=== PATIENT | female | born 1970 | race Caucasian/White ===

== ENCOUNTER → 2019-07-08 09:53 | Outpatient (CLI) | payer OTHER, SELFPAY ==
[2019-07-08 12:25] LABS: Absolute Lymphocyte Count 2.17 X10^3/uL (0.83-4.51); Basophil# 0.03 X10^3/uL; Basophil% 0.4 % (0-1); Eosinophil# 0.18 X10^3/uL; Eosinophils% 2.7 % (0-5); Hemoglobin 12.3 g/dL (12.0-15.0); Lymphocyte # 2.17 X10^3/ul (4.0); Lymphocyte % 32.1 % (19-41); Mean Corp Hgb Conc 31.5 g/dL (32-36); Mean Corpuscular Hgb 25.4 pg (27.0-32.0); Mean Corpuscular Volume 80.6 fL (81-99); Mean Platelet Vol. 9.1 fl (6.2-12.0); Monocyte# 0.37 X10^3/uL; Monocyte% 5.5 % (0-10); NRBC Flagged by Analyzer 0 % (0-5); Neutrophil # 3.99 X10^3/uL (2.7-7.7); Neutrophil % 59.2 % (47-70); Platelet Count 433 K/mm3 (150-450); RBC Distribution Width CV 14.4 % (11.6-14.6); RBC Distribution Width SD 42.1 fl (35.1-43.9); Red Blood Count 4.84 M/mm3 (4.2-5.4); White Blood Count 6.8 K/mm3 (4.4-11.0)
[2019-07-08 12:30] LABS: ALB/GLOB Ratio 0.8 RATIO (0.9-2.4); AST(SGOT) 15 U/L (15-37); Alanine Aminotransfer ALT/SGPT 26 U/L (13-56); Albumin, Serum 3.4 g/dL (3.2-5.0); Alkaline Phosphatase 64 U/L (45-117); Anion Gap 5 (5-15); BUN 8 mg/dL (7-18); BUN/Creat Ratio 10.8 RATIO (10-20); Calcium,Total 9.1 mg/dL (8.5-10.1); Chloride 105 mmol/L (98-107); Creatinine, Serum 0.74 mg/dL (0.55-1.02); EST Glomerular Filtration Rate 89 mL/min (>60); Est Glom Filt Rate - Afr Amer 107 mL/min (>60); Glucose 95 mg/dL (74-106); Potassium 3.9 mmol/L (3.5-5.1); Protein, Total 7.4 g/dL (6.4-8.2); Sodium Level 138 mmol/L (136-145)
== END ==
PROVIDERS: Referring Provider Internal Medicine Rheumatology; Visit Provider Internal Medicine Rheumatology
DX: M06.4 Inflammatory polyarthropathy (principal); M21.42 Flat foot [pes planus] (acquired), left foot
CPT/HCPCS: 36415; 80053; 85025

== ENCOUNTER → 2019-07-11 14:09 | Outpatient (CLI) | payer OTHER, SELFPAY ==
[2019-07-11 15:45] LABS: Rheumatoid Factor < 10.0 IU/mL (<15)
[2019-07-12 09:51] LABS: Hepatitis B Surface Antibody Non-Reactive; Hepatitis B Surface Antigen Non-Reactive (Nonreactive); Hepatitis C Antibody Non-Reactive (Nonreactive)
[2019-07-15 11:49] LABS: CCP IgG Antibodies 7 units (0-19)
== END ==
PROVIDERS: Referring Provider Internal Medicine Rheumatology; Visit Provider Internal Medicine Rheumatology
DX: M06.9 Rheumatoid arthritis, unspecified (principal); M21.42 Flat foot [pes planus] (acquired), left foot
CPT/HCPCS: 36415; 86200; 86431; 86706; 86803; 87340

== ENCOUNTER → 2020-10-20 14:53 | Outpatient (CLI) | payer OTHER, SELFPAY ==
--- NOTE | 2020-10-20 14:56 | RAD_ITS ---
EXAM: XR CHEST, 2 VIEWS : 1970 CLINICAL INDICATION: PAIN TECHNIQUE: Frontal and lateral views of the chest. This report was created using Reveal report generation technology. COMPARISON: None. FINDINGS: LUNGS AND PLEURAL SPACES: Unremarkable. No consolidation or edema. No pneumothorax. No effusion. HEART: Unremarkable. Cardiac silhouette not enlarged. MEDIASTINUM: Central airways and mediastinal contour are unremarkable. BONES/JOINTS: Unremarkable. SOFT TISSUES: Unremarkable. RAD/Chest PA and Lateral IMPRESSION: No radiographic evidence of acute cardiopulmonary disease. at 1756 Reported and signed by: Da Gusman MD Electronically Signed: Da Gusman MD at 17:55 EDT Tel , Service support ,
[2020-10-23 06:08] LABS: QNTFERON TB Mitogen Value > 10.00 IU/mL (.); QNTFERON TB Nil Value 0 IU/mL (.); QNTFERON TB1+ Ag Value 0 IU/mL (.); QNTFERON TB2+ Ag Value 0 IU/mL (.)
[2020-10-23 08:29] LABS: QNTIFERON TB Positive Criteria Negative (Negative)
== END ==
PROVIDERS: PCP Nurse Practitioner Family; Referring Provider Internal Medicine Rheumatology; Visit Provider Internal Medicine Rheumatology
DX: L40.59 Other psoriatic arthropathy (principal); M47.892 Other spondylosis, cervical region; M47.897 Other spondylosis, lumbosacral region; M21.41 Flat foot [pes planus] (acquired), right foot; Z79.899 Other long term (current) drug therapy
CPT/HCPCS: 36415; 71046; 86480

== ENCOUNTER 2021-09-03 15:38 | Outpatient (CLI) | payer OTHER, SELFPAY | END 2021-09-03 23:59 | disposition home or self-care (01) | LOC: MTLAB 15:41 | PROVIDERS: PCP Nurse Practitioner Family; Referring Provider Urology; Visit Provider Urology | DX: N30.20 Other chronic cystitis without hematuria (principal) | CPT/HCPCS: 87077; 87086; 87088; 87186 ==

== ENCOUNTER 2021-09-17 10:43 | Outpatient (CLI) | payer OTHER, SELFPAY ==
[2021-09-17 11:49] LABS: Absolute Lymphocyte Count 2.13 X10^3/uL (0.83-4.51); Absolute Neutrophil Count 4.5 X10^3/uL (2.0-7.7); Basophil# 0.03 X10^3/uL; Basophil% 0.4 % (0-1); Eosinophil# 0.12 X10^3/uL; Eosinophils% 1.7 % (0-5); Hemoglobin 11.1 g/dL (12.0-15.0); Lymphocyte # 2.13 X10^3/ul (0.83-4.51); Lymphocyte % 29.4 % (19-41); Mean Corp Hgb Conc 30.8 g/dL (32-36); Mean Corpuscular Hgb 23.4 pg (27.0-32.0); Mean Corpuscular Volume 75.8 fL (81-99); Mean Platelet Vol. 8.7 fl (6.2-12.0); Monocyte# 0.46 X10^3/uL; Monocyte% 6.3 % (0-10); NRBC Flagged by Analyzer 0 % (0-5); Neutrophil # 4.49 X10^3/uL (2.7-7.7); Neutrophil % 61.9 % (47-70); Platelet Count 529 K/mm3 (150-450); RBC Distribution Width CV 17.1 % (11.6-14.6); RBC Distribution Width SD 46.4 fl (35.1-43.9); Red Blood Count 4.75 M/mm3 (4.2-5.4); White Blood Count 7.3 K/mm3 (4.4-11.0)
[2021-09-17 12:04] LABS: ALB/GLOB Ratio 0.9 RATIO (0.9-2.4); AST(SGOT) 14 U/L (15-37); Alanine Aminotransfer ALT/SGPT 20 U/L (13-56); Albumin, Serum 3.5 g/dL (3.2-5.0); Alkaline Phosphatase 62 U/L (45-117); Anion Gap 5 (5-15); BUN 9 mg/dL (7-18); BUN/Creat Ratio 11.7 RATIO (10-20); Calcium,Total 8.8 mg/dL (8.5-10.1); Chloride 106 mmol/L (98-107); Creatinine, Serum 0.77 mg/dL (0.55-1.02); EST Glomerular Filtration Rate 85 mL/min (>60); Est Glom Filt Rate - Afr Amer 103 mL/min (>60); Glucose 107 mg/dL (74-106); Protein, Total 7.5 g/dL (6.4-8.2); Sodium Level 136 mmol/L (136-145)
== END 2021-09-17 23:59 | disposition home or self-care (01) ==
LOC: MTLAB 10:44
PROVIDERS: PCP Nurse Practitioner Family; Referring Provider Internal Medicine Rheumatology; Visit Provider Internal Medicine Rheumatology
DX: L40.59 Other psoriatic arthropathy (principal); M47.892 Other spondylosis, cervical region; M47.897 Other spondylosis, lumbosacral region; M21.41 Flat foot [pes planus] (acquired), right foot; L40.8 Other psoriasis; Z79.899 Other long term (current) drug therapy
CPT/HCPCS: 36415; 80053; 85025

== ENCOUNTER → 2021-11-08 | Outpatient (CLI) | payer OTHER, SELFPAY ==
--- NOTE | 2021-11-08 11:10 | CT_ITS ---
STUDY: CT ABDOMEN AND PELVIS WITHOUT CONTRAST REASON FOR EXAM: Female, 50 years old. HEMATURIA. Recent vaginal sleeve procedure. RADIATION DOSAGE (If Supplied By Facility): CTDIvol = ( 23.18 ) mGy, DLP = ( 1337.77 ) mGycm TECHNIQUE: Transaxial images were obtained from the dome of the diaphragm to the symphysis pubis without oral contrast, and without intravenous contrast. Sagittal and coronal images were reconstructed. Individualized dose optimization techniques were used for this CT. COMPARISON: None. FINDINGS: The visualized lung bases are unremarkable. The visualized portions of the heart are within normal limits. Normal liver. There are surgical clips in the gallbladder fossa consistent with a prior cholecystectomy. Normal spleen. Normal pancreas. Normal bilateral adrenal glands. Normal right kidney. Questionable 2 mm calculus in the distal portion of the right ureter just proximal to the ureterovesical junction. Normal left kidney. There is a small hiatal hernia. Normal small intestine. There are multiple colonic diverticula consistent with diverticulosis. The appendix is visualized and appears normal. There is scattered atherosclerotic calcification of the abdominal aorta, without a demonstrated aneurysm. Normal inferior vena cava. Normal retroperitoneum. Normal urinary bladder. There is a 3.5 cm x 2.9 cm well-defined hypodense nodule in the left ovary. Correlation with ultrasound is recommended for further evaluation. There is a small umbilical hernia containing fat. Normal osseous structures. CT/Abdomen/Pel W ORAL Cont Only IMPRESSION: Questionable 2 mm calculus in the distal portion of the right ureter just proximal to the ureterovesical junction. 3.5 cm x 2.9 cm well-defined hypodense nodule in the left ovary. Correlation with ultrasound is recommended. Scattered sigmoid diverticula. Electronically Signed: Jason Burnette MD at 13:53 EDT ,
--- NOTE | 2021-11-08 11:11 | VDLE_ITS ---
Reason For Study: Encounter for surgical aftercare following surgery on the genitourinary system Procedure LEFT This is a venous duplex using B-mode, color GSV is normal. flow and spectral Doppler. CFV is compressible, spontaneous, phasic, Exam performed in department. competent, and demonstrates normal A preliminary report was called and/or faxed augmentation. to [facility]. FV is compressible, spontaneous, phasic, competent and demonstrates normal augmentation. POP V is compressible, spontaneous, phasic, competent and demonstrates normal augmentation. T/P Trunk is compressible. PTV is compressible. LT PerV is compressible. VL/Venous Duplex US, Unilateral Interpretation Summary Deep veins of the left lower extremity are patent and compressible segmentally. There is no evidence of left lower extremity deep vein thrombosis. Valvular competence appears intac t within the proximal deep venous system on the left . The left great saphenous vein appears patent a nd compressible segmentally. Ordering Physician: Garland Cortez Referring Physician: Toni Moran Performed By: Ernestine Baker RVT
== END | disposition home or self-care (01) ==
PROVIDERS: PCP Nurse Practitioner Family; Referring Provider Urology; Visit Provider Urology
DX: Z48.816 Encounter for surgical aftercare following surgery on the genitourinary system (principal); R31.9 Hematuria, unspecified
CPT/HCPCS: 74176; 93971

== ENCOUNTER → 2021-12-02 | Outpatient (CLI) | payer OTHER, SELFPAY ==
--- NOTE | 2021-12-02 07:53 | US_ITS ---
STUDY: ULTRASOUND OF THE FEMALE PELVIS - COMPLETE REASON FOR EXAM: Female, 50 years old. Left ovarian cyst. LMP: 11/17/2021. TECHNIQUE: Transabdominal TECHNICAL QUALITY: Adequate. COMPARISON: Comparison is made with prior CT study dated 11/08/2021. FINDINGS: The uterus is anteverted and is in a midline position. The uterus measures 10.4 cm x 5.5 cm x 4.3 cm. Normal uterine cervix. The endometrium measures 7 mm in thickness, and is hyperechoic. There is no demonstrated endometrial mass. There is no demonstrated myometrial mass. I.U.D. - The patient does not have an I.U.D. The right ovary is visualized. The right ovary measures 2.1 cm x 2.3 cm x 1.9 cm. Small follicles are seen. There is no visualized right adnexal mass or complex lesion. There is normal arterial and normal venous vascularity. The left ovary is visualized. The left ovary measures 4.1 cm x 4.1 cm by 1.7 cm. Small follicles are seen. There is no visualized left adnexal mass or complex lesion. There is normal arterial and normal venous vascularity. There is no fluid in the cul-de-sac. The pre void volume of the bladder was 280 ml. US/Pelvic (Non ) IMPRESSION: Small follicles seen in both ovaries. Electronically Signed: Jason Burnette MD at 14:53 EDT ,
== END | disposition home or self-care (01) ==
LOC: US 07:52
PROVIDERS: PCP Nurse Practitioner Family; Referring Provider Nurse Practitioner Family; Visit Provider Nurse Practitioner Family
DX: N83.202 Unspecified ovarian cyst, left side (principal)
CPT/HCPCS: 76856

== ENCOUNTER 2022-05-09 10:00 | Day surgery (SDC) | payer OTHER, SELFPAY ==
[2022-05-09 10:54] VITALS: BP 150/72; PULSE 93; RESP 18; TEMP 37.1; O2SAT 96; BMI 44.1
[2022-05-09 11:02] LABS: Internal QC Validated? YES +Cl - CLEAR BKGD; Pregnancy, Urine Negative Negative
[2022-05-09] MEDS: Lactated Ringers 1,000 ML 15 ML IV (11:16)
--- NOTE | 2022-05-09 11:20 | RAD_ITS ---
PROCEDURE: Right C4-C7 medial branch nerve block. DATE OF EXAMINATION: 05/09/2022. INDICATION: Female, 51 years old. Chronic right neck pain. FLUOROSCOPY TIME (if supplied): (13 seconds) minutes/seconds. 5 images were submitted. RAD/Cerv Spine 2 or 3 Views IMPRESSION: Intraoperative images are provided for right C4-C7 medial nerve block. Electronically Signed: Jason Burnette MD at 13:44 EST ,
[2022-05-09] MEDS: MethylPREDNISolone Acetate 80 MG/ML Vial (11:32)
[2022-05-09 11:40] VITALS: BP 137/100; BP 150/72; PULSE 90; RESP 16; TEMP 37.4; O2SAT 100
--- NOTE | 2022-05-09 11:41 | OP.PCM_ITS ---
Report of Operation Date of Procedure: 05/09/22 Pre-Operative Diagnosis: Cervical spondylosis, cervical degenerative disc disea se, cervical facet arthropathy Post-Operative Diagnosis: Cervical spondylosis, cervical degenerative disc disease, cervical facet arthropathy Surgery/Procedure Performed:: Right sided cervical medial branch/facet injection, C4, C5, C6, and C7. Type of Anesthesia: MAC Estimated Blood Loss (mL): Minimal Description of Procedure: DESCRIPTION OF PROCEDURE: History and physical of today was reviewed. Risks and benefits of the procedure were explained. The patient understood and agreed to proceed. Informed consent was obtained. IV inserted per routine protocol. The patient was taken to the operating room and placed in the prone position with a pillow positioned underneath the chest. The neck area was prepped and draped in a sterile fashion using iodine x3. Under fluoroscopy guidance on an AP view, the C4 through C7 vertebral bodies were visualized at approximately 10- degree angle, starting on the right C4, ending on the right C7, passing through the C5 and C6. Using a 25-gauge 3-1/2-inch spinal needle, the needle was ad vanced via the skin. The tip of the needle was maneuvered and directed towards the epiphyseal junction of each corresponding vertebra. Once the tip of the needle was at the vicinity of the medial branch, the needle was pulled approximately 2 mm off the bone. After negative aspiration of blood or CSF and confirmation on AP, oblique as well as lateral view, a total of 4 mL of preservative-free 0.25% Marcaine with 80 mg of Depo-Medrol was injected in divided doses between those four levels. The needles were then removed intact. The patient experienced no sign or symptoms of intrathecal or intravascular injection. The patient experienced no paresthesia. The procedure was completed without any apparent difficulty or any complications. The patient appeared to tolerate it well. ASSESSMENT AND PLAN: This is a 51-year-old female with cervical spondylosis, cervical degenerative disc disease, cervical facet arthropathy status post right-sided cervical medial branch/facet steroid injection C4-C7, patient will continue her current medications, patient will follow in approximately 1-2 weeks for reevaluation. Complications None
[2022-05-09 11:45] VITALS: BP 150/72; BP 151/92; PULSE 96; RESP 16; O2SAT 99
[2022-05-09 11:50] VITALS: BP 150/72; BP 150/98; PULSE 90; RESP 16; TEMP 37.2; O2SAT 100
[2022-05-09 12:09] VITALS: BP 150/72
== END 2022-05-09 12:11 | disposition home or self-care (01) ==
LOC: SDC 10:01 → AC 11:05
PROVIDERS: Anesthesiology; PCP Nurse Practitioner Family; Referring Provider Anesthesiology Pain Medicine; Visit Provider Anesthesiology Pain Medicine
PROC: 3E0S3BZ Introduction of Anesthetic Agent into Epidural Space, Percutaneous Approach (ICD-10-PCS; CPT 62322; principal; 2022-05-09 11:25)
DX: M47.812 Spondylosis without myelopathy or radiculopathy, cervical region (principal); M06.9 Rheumatoid arthritis, unspecified; M50.30 Other cervical disc degeneration, unspecified cervical region; I10 Essential (primary) hypertension; Z86.14 Personal history of Methicillin resistant Staphylococcus aureus infection
CPT/HCPCS: 64491; 64492; 64490; 72040; 81025; J7120

== ENCOUNTER → 2022-06-21 | Outpatient (CLI) | payer OTHER, SELFPAY ==
--- NOTE | 2022-06-21 11:33 | RAD_ITS ---
EXAM: XR RIGHT SHOULDER COMPLETE, 2 OR MORE VIEWS CLINICAL INDICATION: SHOULDER PAIN TECHNIQUE: Two or more views of the right shoulder. This report was created using Virtustream report generation technology. COMPARISON: None. FINDINGS: BONES/JOINTS: Unremarkable. No acute fracture. No subluxation. Normal alignment. Preservation of the joint space. No sclerotic or destructive changes observed. SOFT TISSUES: Unremarkable. No soft tissue swelling or gas. No radiopaque foreign body. RAD/Shoulder min 2 Views IMPRESSION: Negative right shoulder x-rays. Electronically Signed: Da Gusman MD at 17:52 EST ,
== END | disposition home or self-care (01) ==
LOC: MTRAD 11:32
PROVIDERS: PCP Nurse Practitioner Family; Referring Provider Nurse Practitioner Family; Visit Provider Nurse Practitioner Family
DX: M25.519 Pain in unspecified shoulder (principal)
CPT/HCPCS: 73030

== ENCOUNTER → 2022-08-23 | Outpatient (CLI) | payer OTHER, SELFPAY ==
[2022-08-23 15:28] LABS: Absolute Lymphocyte Count 2.44 X10^3/uL (0.83-4.51); Absolute Neutrophil Count 4.4 X10^3/uL (2.0-7.7); Basophil# 0.04 X10^3/uL; Basophil% 0.5 % (0-1); Eosinophil# 0.14 X10^3/uL; Eosinophils% 1.9 % (0-5); Hematocrit 39.3 % (37-47); Hemoglobin 11.9 g/dL (12.0-15.0); Lymphocyte # 2.44 X10^3/ul (0.83-4.51); Lymphocyte % 32.5 % (19-41); Mean Corp Hgb Conc 30.3 g/dL (32-36); Mean Corpuscular Hgb 23.9 pg (27.0-32.0); Mean Corpuscular Volume 79.1 fL (81-99); Mean Platelet Vol. 9.6 fl (6.2-12.0); Monocyte# 0.44 X10^3/uL; Monocyte% 5.9 % (0-10); NRBC Flagged by Analyzer 0 % (0-5); Neutrophil # 4.43 X10^3/uL (2.7-7.7); Neutrophil % 58.9 % (47-70); Platelet Count 544 K/mm3 (150-450); RBC Distribution Width CV 16.2 % (11.6-14.6); RBC Distribution Width SD 45.7 fl (35.1-43.9); Red Blood Count 4.97 M/mm3 (4.2-5.4); White Blood Count 7.5 K/mm3 (4.4-11.0)
[2022-08-23 15:29] LABS: ALB/GLOB Ratio 0.8 RATIO (0.9-2.4); AST(SGOT) 15 U/L (15-37); Alanine Aminotransfer ALT/SGPT 24 U/L (13-56); Albumin, Serum 3.4 g/dL (3.2-5.0); Alkaline Phosphatase 70 U/L (45-117); Anion Gap 8 (5-15); BUN 9 mg/dL (7-18); BUN/Creat Ratio 12.7 RATIO (10-20); Chloride 105 mmol/L (98-107); Creatinine, Serum 0.71 mg/dL (0.55-1.02); EST Glomerular Filtration Rate 93 mL/min (>60); Est Glom Filt Rate - Afr Amer 112 mL/min (>60); Globulin 4.1 g/dL (2.2-4.2); Glucose 96 mg/dL (74-106); Potassium 3.8 mmol/L (3.5-5.1); Protein, Total 7.5 g/dL (6.4-8.2); Sodium Level 139 mmol/L (136-145)
== END | disposition home or self-care (01) ==
LOC: MTLAB 11:42
PROVIDERS: PCP Nurse Practitioner Family; Referring Provider Internal Medicine Rheumatology; Visit Provider Internal Medicine Rheumatology
DX: L40.59 Other psoriatic arthropathy (principal); Z79.899 Other long term (current) drug therapy
CPT/HCPCS: 36415; 80053; 85025

== ENCOUNTER → 2023-02-08 | Outpatient (CLI) | payer OTHER, SELFPAY ==
--- NOTE | 2023-02-08 | CER_PTH ---
PATIENT: THADDEUS VALLE LOC: [facility] #:[id number] AGE/SX: 52/F ROOM: RE02/08/[address]: TODD Ron : 1970 BED: DIS: 02/08/2023 SPEC #: [id number] RECD: 02/09/23 10:10 STATUS: DESIREE MAXI #: [id number] MUNDO: 02/08/23 00:[address]: Sara Kaplan NP DEPT: SURGICAL PATHOLOGY RECD BY: Jina Kendrick ENTERED: 02/09/23 10:15 SP TYPE: CERV OTHR DR: TODD Iraheta Tissues: A - Endometrium, NOS B - Uterine cervix, NOS Procedures: Surgery Specimen Level IV HEADER OPERATION: Endometrial biopsy with cervical polypectomy PRE-OP DIAGNOSIS: Abnormal uterine bleeding TISSUE SUBMITTED: A - Endometrial tissue, B - Cervical polyp MICROSCOPIC DIAGNOSIS A. Endometrium, biopsy: Weakly proliferative endometrium with minimal disorder and focal glandular breakdown. B. Cervical polyp, biopsy: Fragments of benign ecto/endocervical polyp, inflamed. AM:zuleyma 02/10/2023 MICROSCOPIC DESCRIPTION Slides are reviewed. GROSS DESCRIPTION A - Received in fixative is one container labeled with the patient's name and designated endometrial tissue. The specimen consists of multiple irregular fragments of pink soft tissue mixed with mucoid tissue that in aggregate measure 3.0 x 2.5 x 0.2 cm. The specimen is totally submitted in one cassette. B - Received in fixative is one container labeled with the patient's name and designated cervical polyp. The specimen consists of multiple irregular fragments of abdi mucoid tissue that in aggregate measure 1.2 x 1.0 x 0.3 cm. The specimen is totally submitted in one cassette. / SJ:zuleyma 02/09/2023 TC:5 CPT: 29111 x2
== END | disposition home or self-care (01) ==
PROVIDERS: PCP Nurse Practitioner Family; Referring Provider Nurse Practitioner Women's Health; Visit Provider Nurse Practitioner Women's Health
DX: N93.9 Abnormal uterine and vaginal bleeding, unspecified (principal); N84.1 Polyp of cervix uteri
CPT/HCPCS: 88305

== ENCOUNTER → 2023-04-18 | Outpatient (CLI) | payer OTHER, SELFPAY | END | disposition home or self-care (01) | LOC: LABSPEC 10:59 | PROVIDERS: PCP Nurse Practitioner Family; Visit Provider Obstetrics & Gynecology | DX: N39.0 Urinary tract infection, site not specified (principal) | CPT/HCPCS: 87086; 87088 ==

== ENCOUNTER 2023-04-25 06:58 | Day surgery (SDC) | payer OTHER, SELFPAY ==
--- NOTE | 2023-04-18 06:47 | EKG12_ITS ---
Test Reason : PREOP Blood Pressure : / mmHG Vent. Rate : 081 BPM Atrial Rate : 081 BPM P-R Int : 126 ms QRS Dur : 068 ms QT Int : 378 ms P-R-T Axes : 010 -23 002 degrees QTc Int : 439 ms Normal sinus rhythm Anterolateral infarct , age undetermined Abnormal ECG Confirmed by RYAN MCCLELLAN, ENRIQUE ([id number]), social media editor MARIMAR DEE ([id number]) on 04/26/2023 10:22:55 AM Referred By: Stephanie Mitchell Confirmed By:ENRIQUE DAVIS MD
[2023-04-18 07:08] LABS: Absolute Lymphocyte Count 1.73 X10^3/uL (0.83-4.51); Absolute Neutrophil Count 4.6 X10^3/uL (2.0-7.7); Basophil# 0.04 X10^3/uL; Basophil% 0.6 % (0-1); Eosinophil# 0.13 X10^3/uL; Eosinophils% 1.9 % (0-5); Hematocrit 38.4 % (37-47); Hemoglobin 11.9 g/dL (12.0-15.0); Lymphocyte # 1.73 X10^3/ul (0.83-4.51); Lymphocyte % 25.3 % (19-41); Mean Corpuscular Hgb 24.2 pg (27.0-32.0); Mean Platelet Vol. 8.9 fl (6.2-12.0); Monocyte# 0.35 X10^3/uL; Monocyte% 5.1 % (0-10); NRBC Flagged by Analyzer 0 % (0-5); Neutrophil # 4.58 X10^3/uL (2.7-7.7); Neutrophil % 66.8 % (47-70); Platelet Count 495 K/mm3 (150-450); RBC Distribution Width CV 16.3 % (11.6-14.6); RBC Distribution Width SD 46.2 fl (35.1-43.9); Red Blood Count 4.92 M/mm3 (4.2-5.4); White Blood Count 6.9 K/mm3 (4.4-11.0)
[2023-04-18 07:43] LABS: ALB/GLOB Ratio 0.8 RATIO (0.9-2.4); AST(SGOT) 13 U/L (15-37); Alanine Aminotransfer ALT/SGPT 22 U/L (13-56); Albumin, Serum 3.3 g/dL (3.2-5.0); Alkaline Phosphatase 68 U/L (45-117); Anion Gap 5 (5-15); BUN 11 mg/dL (7-18); BUN/Creat Ratio 14.5 RATIO (10-20); Calcium,Total 8.7 mg/dL (8.5-10.1); Chloride 105 mmol/L (98-107); Creatinine, Serum 0.76 mg/dL (0.55-1.02); EST Glomerular Filtration Rate 85 mL/min (>60); Est Glom Filt Rate - Afr Amer 103 mL/min (>60); Globulin 4.1 g/dL (2.2-4.2); Glucose 133 mg/dL (74-106); Protein, Total 7.4 g/dL (6.4-8.2); Sodium Level 137 mmol/L (136-145)
--- NOTE | 2023-04-24 08:40 | EMB_PTH ---
PATIENT: THADDEUS VALLE LOC: [facility] [place] U#:[id number] AGE/SX: 52/F ROOM: RE04/25/[address]: Dr. Stephanie Mitchell MD : 1970 BED: DIS: 04/25/2023 SPEC #: [id number] RECD: 04/25/23 12:17 STATUS: DESIREE MAXI #: [id number] MUNDO: 04/24/23 08:[address]: Stephanie Mitchell DEPT: SURGICAL PATHOLOGY RECD BY: Josefina Burciaga ENTERED: 04/25/23 12:17 SP TYPE: ENDOM BX/C FELIX DR: Toni Moran, FREDO-C Tissues: Endometrium, NOS Procedures: Surgery Specimen Level IV HEADER OPERATION: Hysteroscopy, D & C, polypectomy PRE-OP DIAGNOSIS: Irregular menses, polyp on endometrial biopsy TISSUE SUBMITTED: Uterine curettings MICROSCOPIC DIAGNOSIS Endometrium, curettings: Polypoid fragments of secretory endometrium. Scant fragments of benign endocervical tissue. Desquamated benign squamous epithelial cells. AM:zuleyma 04/26/2023 MICROSCOPIC DESCRIPTION Slides are reviewed. GROSS DESCRIPTION Received in fixative is one container labeled with the patient's name and designated uterine curettings. The specimen consists of multiple hemorrhagic fragments of red-abdi soft tissue that in aggregate measure 2.5 x 2.5 x 0.2 cm. The specimen is totally submitted in one cassette. / AM:zuleyma 04/25/2023 TC:5 CPT: 10942
--- NOTE | 2023-04-25 07:26 | PCM.HP.BLA ---
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: No Is patient in pain?: No Allergies codeine Allergy (Verified 04/18/23 08:48) Anaphylaxis Medications diclofenac potassium 50 mg tablet 50 mg PO BID PRN Pain 05/06/22 [History Confirmed 04/18/23] folic acid 1 mg tablet 3 mg PO DAILY 05/06/22 [History Confirmed 04/18/23] ixekizumab 80 mg/mL subcutaneous auto-injector (Taltz Autoinjector) 80 mg subcut QMONTH 05/06/22 [History Confirmed 04/18/23] leucovorin calcium 15 mg tablet 15 mg PO QWEEK 05/06/22 [History Confirmed 04/18/23] methotrexate (PF) 7.5 mg/0.15 mL subcutaneous auto-injector 7.5 mg subcut QWEEK 05/06/22 [History Confirmed 04/18/23] prednisone 10 mg tablet 10 mg PO DAILY PRN Pain 05/06/22 [History Confirmed 04/18/23] ramipril 10 mg capsule 10 mg PO DAILY 05/06/22 [History Confirmed 04/18/23] cyclobenzaprine 10 mg tablet 10 mg PO DAILY PRN 02/08/23 [History Confirmed 04/18/23] ivermectin 1 % topical cream (Soolantra) 1 applic topical DAILY 02/08/23 [History Confirmed 04/18/23] TAEROLIMUS 1 dose topical DAILY PRN 04/17/23 [History Confirmed 04/18/23] acetaminophen 325 mg capsule 325 mg PO Q6H PRN pain 04/17/23 [History Confirmed 04/18/23] naproxen sodium 220 mg capsule (Aleve) 220 mg PO BID PRN pain 04/17/23 [History Confirmed 04/18/23] fluconazole 150 mg tablet 150 mg PO ONCE #1 TAB 04/18/23 [Rx Confirmed 04/18/23] Post menopausal: No Patient : No : No [facility] Medical History (Updated 04/18/23 @ 08:49 by Oksana Fam MA) Anemia Chronic UTI Difficult intravenous access History of MRSA infection History of steroid therapy Hypertension Low iron Non-smoker Psoriatic arthritis Rheumatoid arthritis Wears contact lenses Surgical History (Updated 04/17/23 @ 09:38 by Marielena Méndez) History of adenoidectomy History of bladder surgery History of cholecystectomy History of myringotomy History of surgical procedure Social History (Updated 02/08/23 @ 13:06 by Josefina Sanchez) household members: spouse number of children: 2 current occupational status: employed current occupation: [employer]- Smoking Status: Never smoker alcohol intake: never substance use type: does not use seatbelt use: always do you feel safe at home: Yes additional social history: - [employer] HPI D&C Symphion Details: THADDEUS VALLE is a 52 year old who presents for AUB irregular menses, had polyp on EMB. US 7 mm lining with 10 cm uterus. Female Reproductive History Menopausal Symptoms: No night sweats History 2 Elective abortions Hx Para Spontaneous abortions Hx # Term Pregnancies Ectopic pregnancies Hx # Pregnancies Multiple births # of living children 2 Past Pregnancies Del. Date Name GA/Weeks Outcome Route Bth Weight Gen Labor Lgth Anesthesia Del Locatn Provider FOB Unknown [place] 1995 Unknown [place] 1999 ROS Const Constitutional: Denies fatigue, night sweats, weight gain or weight loss ENT ENT: Reports system reviewed and no additional complaints, except as documented Cardio Card: Denies chest pain Resp Resp: Denies cough or dyspnea GI GI: Reports as per HPI; Denies abdominal pain, constipation, nausea or vomiting : Denies nipple discharge, urinary frequency, urinary incontinence, urinary hesitancy, urinary urgency, vaginal discharge, vaginal dryness, vaginal odor or vaginal pruritus Musc Musc: Denies arthralgias, back pain or muscle weakness Skin Skin/Breast: Denies alopecia, change in hair, dry skin, breast mass, breast pain, breast skin changes or nipple discharge Neuro Neuro: Reports system reviewed and no additional complaints, except as documented Psych Psych: Reports system reviewed and no additional complaints, except as documented Endo Endo: Denies cold intolerance, excessive sweating, heat intolerance or polydipsia Martin/Lymph Hematologic/Lymphatic: Denies easy bleeding, Denies easy bruising and Denies lymphadenopathy Exam Const General: cooperative, healthy appearing, comfortable and no acute distress Orientation: alert HENMT Head: normal to inspection and normocephalic Ears: hearing grossly normal bilaterally and external ears normal Nose: external nose normal and nares normal Face and sinus: normal facial exam Neck Neck: normal visual inspection and no lymphadenopathy Thyroid: thyroid normal Chest Chest palpation & inspection: normal inspection of the chest Resp Effort & Inspection: normal respiratory effort Auscultation: clear to auscultation bilaterally Cardio Rate: regular rate Rhythm: regular rhythm Heart Sounds: S1 normal and S2 normal GI Inspection: normal to inspection and non-distended Palpation: soft and no hepatosplenomegaly Musc Other: gross motor intact no deficits, full bilateral strength Skin General: no rashes or lesions noted Neuro General: patient alert, patient awake, moves all extremities and no focal motor deficits Motor: muscle tone normal throughout Extrem General: normal to inspection and no pedal edema Psych Appearance: grossly normal Mental Status: mental status grossly normal Affect: normal affect Speech and Movement: speech and movement normal Results POC Urinalysis Dip (Clinic) Office Urine Color Yellow Last Edit by Oksana Fam MA on 04/18/23 08:57 Office Urine Clarity Cloudy Last Edit by Oksana aFm MA on 04/18/23 08:57 Office Urine Glucose Negative Last Edit by Oksana Fam MA on 04/18/23 08:57 Office Urine Ketones Negative Last Edit by Oksana Fam MA on 04/18/23 08:57 Off Ur Spec [place] 1.020 Last Edit by Oksana Fam MA on 04/18/23 08:57 Office Urine pH 5.0 Last Edit by Oksana Fam MA on 04/18/23 08:57 Office Urine Bilirubin Negative Last Edit by Oksana Fam MA on 04/18/23 08:57 Office Urine Urobilinogen 0.2 mg/dL Last Edit by Oksana Fam MA on 04/18/23 08:57 Office Urine Blood Moderate Last Edit by Oksana Fam MA on 04/18/23 08:57 Office Urine Blood Hemolyzed Moderate Last Edit by Oksana Fam MA on 04/18/23 08:57 Office Urine Protein Negative Last Edit by Oksana Fam MA on 04/18/23 08:57 Office Urine Nitrate Negative Last Edit by Oksana Fam MA on 04/18/23 08:57 Off Ur Leukocytes Positive Last Edit by Oksana Fam MA on 04/18/23 08:57 trace leuks. Coding Level of Care Code No Charge Diagnoses Endocervical polyp N84.1 Abnormal uterine bleeding (AUB) N93.9 Assessment and Plan Assessment and Plan (1) Endocervical polyp: Status: Acute Comment: Removed and still able to visual tissue up within cervical os. Path pending. d and c planned (2) Abnormal uterine bleeding (AUB): Status: Acute Comment: plan d and c hysteroscopy symphion Orders: Orders POC Urinalysis Dip (Clinic) Today N39.0 - Urinary tract infection, site not specified Culture, Urine Today N39.0 - Urinary tract infection, site not specified Medications: New fluconazole 150 mg PO ONCE 1 TAB 0RF Plan After discussing the patient's diagnosis and treatment plan options, patient wishes to proceed with surgical management. I have discussed with the patient the risks, benefits, and alternatives of the procedure which include but are not limited to risks of anesthesia, bleeding, infection, possible damage to bowel, bladder, or surrounding vasculature which could lead to additional surgery to evaluate any complications. Patient agrees to procedure and wishes to proceed. ACOG/uptodate references given for additional information regarding procedure. UPDATE- I have seen the patient and performed any clinically relevant updates to the history and physical exam. Stephanie Mitchell MD
[2023-04-25 07:30] LABS: Internal QC Validated? YES +Cl - CLEAR BKGD
[2023-04-25 07:31] LABS: Pregnancy, Urine Negative Negative
[2023-04-25 07:40] VITALS: BP 137/96; PULSE 80; RESP 16; TEMP 36.4; O2SAT 98; BMI 44.1
[2023-04-25] MEDS: Lactated Ringers 1,000 ML 15 ML IV (08:17)
[2023-04-25] MEDS: Lidocaine 1% (20 ml mdv) 20 ML Vial (08:49)
--- NOTE | 2023-04-25 08:52 | PCM.OPRPT ---
Problems Associated Problem List Diagnoses (1) Endocervical polyp: (2) Abnormal uterine bleeding (AUB): Report of Operation Date of Procedure: 04/25/23 Pre-Operative Diagnosis: see problem list Post-Operative Diagnosis: same Surgery/Procedure Performed:: D&C hysteroscopy polypectomy Surgeon: Stephanie Mitchell senior sales operations manager: None Type of Anesthesia: Local MAC Special Medications: none Specimen's removed: EMC, polyp Drains: none Estimated Blood Loss (mL): 50 Fluids Replaced: crystalloid Description of Procedure: Patient was prepped and draped in a normal sterile fashion under MAC anesthesia. rectocele seen, A weighted speculum was placed in the vagina and the anterior lip of the cervix was grasped with a single-tooth tenaculum. due to soft tissue, there is limited vaginal access with minimal uterine descent. A paracervical block was placed with 1% lidocaine. Cervix was progressively dilated to allow passage of a 5 mm hysteroscope. The lining was fully visualized and noted to have thickened lining endocervical polyp removed with polyp forceps. Uterine sounded to 10 cm. Curettage was performed and large amount of tissue removed , sent to pathology. All instruments were removed from the vagina and excellent hemostasis was noted. Patient was awoken and taken to recovery in stable condition. Grafts/Implants Used: none Complications none Admit VTE Documentation VTE Present on Admission: No VTE Mechan Device Prophylaxis: SCD's Multi Select Codes Urinary/Genital Urinary/Genital CPT Codes: 24848 Hysteroscopy,EMC, Polypectomy
--- NOTE | 2023-04-25 08:55 | PCM.DC ---
Discharge Instructions Diet Discharge Diet: No restrictions Activity Discharge Activity: Return to Normal Activity, May Shower and May Take a Tub Bath (after 1 week) May resume sexual activity in: 1-2 weeks Weight Bearing Status: Weight bearing as tolerated Lifting Restrictions: none Dressing / Incision Call your doctor if you observe: Fever of 101 or Higher, Using more than 1 pad per hour, Shortness of breath and Uncontrolled pain Follow Up Care Please Follow Up With: Stephanie Mitchell MD When: Call [phone] to schedule appointment. Test Results: Test results from this visit will be discussed in further detail at your follow-up appointment, if applicable. Discharge Plan Admission Attending Provider: Stephanie Mitchell Primary Care Provider: Toni Moran NP Discharge Orders/Prescriptions Prescriptions: No Action cyclobenzaprine 10 mg tablet 10 mg PO DAILY PRN Hold Instructions: PREOP ivermectin [Soolantra] 1 % cream 1 applic topical DAILY fluconazole 150 mg tablet 150 mg PO ONCE Qty: 1 0RF prednisone 10 mg Tablet 10 mg PO DAILY PRN (Reason: Pain) Hold Instructions: PREOP leucovorin calcium 15 mg Tablet 15 mg PO QWEEK Hold Instructions: PREOP diclofenac potassium 50 mg Tablet 50 mg PO BID PRN (Reason: Pain) folic acid 1 mg Tablet 3 mg PO DAILY Hold Instructions: PREOP ramipril 10 mg Capsule 10 mg PO DAILY Hold Instructions: PREOP methotrexate (PF) 7.5 mg/0.15 mL Auto-Injector 7.5 mg SUBCUT QWEEK Hold Instructions: PREOP Taltz Autoinjector 80 mg/mL Auto-Injector 80 mg SUBCUT QMONTH Hold Instructions: PREOP naproxen sodium [Aleve] 220 mg capsule 220 mg PO BID PRN (Reason: pain) acetaminophen 325 mg capsule 325 mg PO Q6H PRN (Reason: pain) TAEROLIMUS 1 dose topical DAILY PRN Other Ambulatory Orders: 12 Lead EKG (Routine) Timeframe: [id number] Location: None Selected Ordered By: Dr. Stephanie Mitchell Referrals / Follow Up: Toni Moran NP, [facility] [Primary Care Provider] - Disposition Disposition (needs filled in before D/C Order can be placed): Home, Self Care
[2023-04-25 09:00] VITALS: BP 137/96; BP 156/110; PULSE 73; RESP 16; TEMP 36.6; O2SAT 94
[2023-04-25 09:05] VITALS: BP 137/96; BP 143/89; PULSE 72; RESP 16; O2SAT 97
[2023-04-25 09:11] VITALS: BP 131/86; BP 137/96; PULSE 70; RESP 16; TEMP 36.3; O2SAT 94
[2023-04-25 09:26] VITALS: BP 137/96
== END 2023-04-25 09:37 | disposition home or self-care (01) ==
LOC: SDC 06:59 → AC 06:59
PROVIDERS: Anesthesiology; PCP Nurse Practitioner Family; Referring Provider Obstetrics & Gynecology; Visit Provider Obstetrics & Gynecology
PROC: 0UB98ZZ Excision of Uterus, Via Natural or Artificial Opening Endoscopic (ICD-10-PCS; CPT 58558; principal; 2023-04-25 08:25)
DX: N84.1 Polyp of cervix uteri (principal); N93.9 Abnormal uterine and vaginal bleeding, unspecified; I10 Essential (primary) hypertension; Z79.52 Long term (current) use of systemic steroids; Z79.899 Other long term (current) drug therapy
CPT/HCPCS: 58558; 00952; 36415; 80053; 81025; 85025; 86850; 86900; 86901; 88305; 93005; J7120; J2405

== ENCOUNTER → 2023-05-24 | Outpatient (CLI) | payer OTHER, SELFPAY ==
--- NOTE | 2023-05-24 07:37 | BI_ITS ---
MAMMOGRAPHY - BILATERAL SCREENING REASON FOR EXAM: Female, 52 years old. Routine annual screening examination. PERTINENT HISTORY: Non-contributory. TECHNIQUE: Digital bilateral breast jabari (3D mammographic acquisition) in the CC and MLO projections. 2-D mediolateral oblique (MLO) and craniocaudad (CC) views of both breasts were obtained. CAD: Full Field Digital Mammography with Computer Added Detection was performed. COMPARISON: No comparison mammograms available at this time. If any prior films become available, an addendum to this report can be generated. FINDINGS: Breast Composition: There are scattered areas of fibroglandular density. There is a 1.8 cm x 1.9 cm irregular nodular density in the upper lateral aspect of the left breast. Correlation with ultrasound is recommended. Small benign-appearing bilateral axillary lymph nodes. No other significant abnormalities are identified. BI/SCRN MAMM (CAD)W/JABARI BILAT IMPRESSION: Focal 1.8 cm x 1.9 cm irregular nodular density in the upper lateral aspect of the left breast as described. Correlation with ultrasound is recommended. ASSESSMENT CATEGORY: BIRADS Category 0: Incomplete. Need additional imaging evaluation. A letter regarding these results will be sent to the patient by the facility within 30 days. Approximately 10% of breast cancers are not detected by mammography. A normal mammogram should not delay biopsy of a clinically suspicious abnormality. [id number] Electronically Signed: Jason Burnette MD at 9:13 EST ,
== END | disposition home or self-care (01) ==
LOC: OPBI 07:36
PROVIDERS: PCP Nurse Practitioner Family; Referring Provider Obstetrics & Gynecology; Visit Provider Obstetrics & Gynecology
DX: Z12.31 Encounter for screening mammogram for malignant neoplasm of breast (principal)
CPT/HCPCS: 77063; 77067

== ENCOUNTER → 2023-05-25 | Outpatient (CLI) | payer OTHER, SELFPAY ==
--- NOTE | 2023-05-25 14:36 | US_ITS ---
STUDY: ULTRASOUND BREAST - LEFT REASON FOR EXAM: Female, 52 years old. Abnormal screening mammogram. TECHNIQUE: Axial and longitudinal images of the LEFT breast were performed with a high resolution ultrasound transducer. # OF IMAGES: 65 COMPARISON: Comparison is made with prior mammogram done earlier in the day. FINDINGS: LEFT Breast: At the 2:00 position of the breast at 7 cm from the nipple, there is a slightly irregular nodular density. Additional mammographic views will be obtained. US/Breast Limited Unilateral IMPRESSION: Suspicious abnormality at the 2:00 position of the breast at 7 cm from the nipple as described. Additional mammographic views will be obtained. ASSESSMENT CATEGORY: BIRADS Category 0: Incomplete. Need additional imaging evaluation. A letter regarding these results will be sent to the patient by the facility within 30 days. Electronically Signed: Jason Burnette MD at 7:42 EST ,
--- NOTE | 2023-05-25 15:39 | BI_ITS ---
MAMMOGRAPHY - UNILATERAL DIAGNOSTIC: LEFT BREAST REASON FOR EXAM: Female, 52 years old. Abnormal screening mammogram. PERTINENT HISTORY: Non-contributory. TECHNIQUE: Compression spot views of the left breast in the mediolateral oblique and craniocaudad projections were obtained. 90 degree lateral view was obtained as well. CAD: Full Field Digital Mammography with Computer Added Detection was performed. COMPARISON: Comparison is made with prior mammogram dated May 24, 2023. FINDINGS: Breast Composition: There are scattered areas of fibroglandular density. Persistent area of architectural distortion and faint nodular density in the upper lateral aspect of the left breast. No other significant abnormalities are identified. BI/DIAG MAMM W/CAD, UNILAT IMPRESSION: Persistent architectural distortion and nodularity in the upper lateral aspect of the left breast as described. Biopsy is recommended. ASSESSMENT CATEGORY: BIRADS Category 4: Suspicious - Biopsy Should Be Considered. A letter regarding these results will be sent to the patient by the facility within 30 days. Approximately 10% of breast cancers are not detected by mammography. A normal mammogram should not delay biopsy of a clinically suspicious abnormality. Electronically Signed: Jason Burnette MD at 7:41 EST ,
== END | disposition home or self-care (01) ==
LOC: OPUS 14:35
PROVIDERS: PCP Nurse Practitioner Family; Referring Provider Obstetrics & Gynecology; Visit Provider Obstetrics & Gynecology
DX: R92.30 Dense breasts, unspecified (principal)
CPT/HCPCS: 76642; 77065

== ENCOUNTER 2023-06-09 09:10 | Day surgery (SDC) | payer OTHER, SELFPAY ==
[2023-06-09] VITALS (7 sets, daily range): BP systolic 107–158; BP diastolic 67–100; PULSE 65–82; RESP 18; TEMP 36.4–36.9; O2SAT 94–100; BMI 42.7
[2023-06-09] MEDS: Lactated Ringers 1,000 ML 15 ML IV (09:36)
--- OUTSIDE RECORDS SUMMARY | 2023-06-09 09:53 | XMS RPT_ITS | CCD ---
Author Name Unknown Address [facility] [address] [place] [address] Organization [facility] Care Team Providers Care Fish Packer Name Role Phone IVON Mccrary CNP, KAREN Willson Primary Care [facility] IVONTAE WHITT - FERNANDO, KAREN Willson Attending U navailable IVON COAL TRAMMER - LEAD OXIDE MILL TENDER, KAREN Willson Primary Care U navailable IVON COAL TRAMMER - LEAD OXIDE MILL TENDER, KAREN Willson Primary Care U navailable IVON COAL TRAMMER - LEAD OXIDE MILL TENDER, KAREN Willson Attending U navailable IVON COAL TRAMMER - LEAD OXIDE MILL TENDER, KAREN Willson Primary Care U navailable SEFFENS COAL TRAMMER-LEAD OXIDE MILL TENDER, BRYAN Attending WALKER Galaviz DO Attending Unavailable IVON COAL TRAMMER - LEAD OXIDE MILL TENDER, KAREN Willson Primary Care U navailable IVON COAL TRAMMER - LEAD OXIDE MILL TENDER, KAREN Willson Attending U navailable IVON COAL TRAMMER - LEAD OXIDE MILL TENDER, KAREN Willson Primary Care U navailable IVON COAL TRAMMER - LEAD OXIDE MILL TENDER, KAREN Willson Attending U navailable IVON COAL TRAMMER - LEAD OXIDE MILL TENDER, KAREN Willson Primary Care U navailable Allergies Allergy Classification Reported Allergen(s) Allergy Type Date of Onset Reaction(s) Facility (11 sources) Codeine; Translations: [codeine] Drug Allergy Anaphylaxis (disorder) [facility] Work Phone: Medications Current Medications Medication Drug Class(es) Dates Sig (Normalized) Sig (Original) bismuth subsalicylate 262 mg chewable tablet (11 sources) Bismuth Start: 06-18-2020 take 1 mg by mouth four times daily as needed Pepto-Bismol 262 mg oral tablet, chewable mg = tab(s), Chewed, QID, PRN, 0 Refill(s) Start Date: 06/18/20 Status: Ordered cephalexin 500 mg oral capsule (1 source) Cephalosporin Antibacterial Start: 04-28-2021 End: 05-05-2021 cephalexin 500 mg oral capsule Dose : 500 mg = 1 cap(s), Oral, q8h, X 7 day(s), # 21 cap(s), 0 Refill(s), 05/05/21 9:18:00 EST, [id number], UTI symptoms, 162, cm, 04/28/21 8:59:00 EST, Height, 113.5, kg, 04/28/21 8:59:00 EST, Dosing Weight Start Date: 04/28/21 Stop Date: 05/05/21 Status: Ordered ciprofloxacin 500 mg oral tablet (3 sources) Quinolone Antimicrobial Start: 02-27-2023 End: 03-04-2023 Cipro 500 mg oral tablet Dose : 500 mg = 1 tab(s), Oral, q12h, X 5 day(s), # 10 tab(s), 0 Refill(s), 03/04/23 3:00:00 PM EDT, [id number], Dysuria UTI symptoms, 160.5, cm, 02/27/23 14:48:00 EDT, Height, 114.7, kg, 02/27/23 14:48:00 EDT, Dosing Weight Start Date: 02/27/23 Stop Date: 03/04/23 Status: Ordered Completed/Discontinued Medications Medication Drug Class(es) Dates Sig (Normalized) Sig (Original) albuterol MDI (90 mcg/inh) CFC free inhalation aerosol (2 sources) Start: 06-15-2021 End: 07-15-2021 take 2 puff(s) by inhalation every six hours albuterol MDI (90 mcg/inh) CFC free inhalation aerosol 2 puff(s), Inhalation, q6h, # 18 gram(s), 0 Refill(s), [id number], Cough, 161, cm, 06/15/21 10:52:00 EST, Height, kg, 06/15/21 10:52:00 EST, Dosing Weight Start Date: 06/15/21 Stop Date: 07/15/21 Status: Ordered augmented betamethasone 0.5 mg/ml topical cream (11 sources) Corticosteroid Start: 02-09-2021 betamethasone dipropionate, augmented 0.05% topical cream Apply 1 ramakrishna, Topical, qDay, 0 Refill(s), Cream, 117 Start Date: 02/09/21 Status: Ordered Problems Active Problems Problem Classification Problem Date Documented Date Episodic/Chronic Diabetes mellitus without complication (11 sources) Impaired fasting glycemia 02-09-2021 Episodic Disorders of lipid metabolism (11 sources) Hyperlipidemia 01-17-2019 Chronic Essential hypertension (11 sources) Hypertensive disorder 06-18-2020 Chronic Genitourinary symptoms and ill-defined conditions (2 sources) Dysuria; Translations: [Dysuria] Onset: 02-27-2023 Episodic Menstrual disorders (4 sources) Disorder of menstruation 01-16-2023 Chronic Neoplasms of unspecified nature or uncertain behavior (4 sources) Thrombocytosis 06-10-2022 Chronic Nutritional deficiencies (5 sources) Vitamin D deficiency 10-05-2021 Chronic Other inflammatory condition of skin (11 sources) Rosacea 04-23-2019 Chronic Other nutritional; endocrine; and metabolic disorders (4 sources) Body mass index 40+ - severely obese 06-10-2022 Chronic Ovarian cyst (5 sources) Cyst of ovary 11-22-2021 Episodic Residual codes; unclassified (11 sources) Hypersomnia 12-17-2019 Chronic Residual codes; unclassified (11 sources) Increased body mass index 08-26-2019 Episodic Rheumatoid arthritis and related disease (11 sources) Rheumatoid arthritis 08-26-2019 Chronic Spondylosis; intervertebral disc disorders; other back problems (11 sources) Chronic neck pain 06-18-2020 Episodic Unclassified (20 sources) Patient encounter status 02-03-2020 Unclassified (7 sources) History of SARS-CoV-2 06-15-2021 Unclassified (5 sources) Non-smoker 10-05-2021 Unclassified (4 sources) Cancer cervix screening status 06-10-2022 Urinary tract infections (10 sources) Chronic cystitis 05-07-2021 Chronic Urinary tract infections (12 sources) Recurrent urinary tract infection; Translations: [Urinary tract infection, site not specified] Onset: 03-13-2023 05-07-2021 Episodic Viral infection (2 sources) Disease caused by 2019-nCoV 06-15-2021 Past or Other Problems Problem Classification Problem Date Documented Da te Episodic/Chronic Other upper respiratory infections (3 sources) Upper respiratory infection; Translations: [Acute upper respiratory infection, unspecified] Onset: 04-11-2022 06-14-2021 Episodic Results Test Name Value Interpretation Reference Range Facil ity Encounters Encounter Date Encounter Type Care Provider Facility Start: 03-13-2023 End: 03-18-2023 ambulatory WALKER JAUREGUI DO Facility:B Start: 03-13-2023 End: 03-17-2023 Outreach Lab WALKER JAUREGUI DO [facility] Start: 02-27-2023 End: 03-04-2023 ambulatory KAREN DEL VALLE COAL TRAMMER - LEAD OXIDE MILL TENDER Facility:B Start: 02-27-2023 End: 03-03-2023 Outreach Lab KAREN DEL VALLE COAL TRAMMER - LEAD OXIDE MILL TENDER [facility] Start: 01-23-2023 ambulatory KAREN Willson TOMP KINS COAL TRAMMER - LEAD OXIDE MILL TENDER Facility:A Start: 01-17-2023 End: 01-18-2023 ambulatory KAREN Willson IVON COAL TRAMMER - LEAD OXIDE MILL TENDER Facility:B Start: 01-17-2023 End: 01-17-2023 Patient encounter procedure KAREN DEL VALLE COAL TRAMMER - LEAD OXIDE MILL TENDER [facility] Start: 01-16-2023 End: 01-21-2023 ambulatory KAREN MONTERROSOPKINS COAL TRAMMER - LEAD OXIDE MILL TENDER Facility:B Start: 01-16-2023 End: 01-21-2023 Encounter for gynecological examination (general) (routine) without abnormal findings KAREN MONTERROSOPKINS COAL TRAMMER - LEAD OXIDE MILL TENDER Facility:B Start: 01-16-2023 End: 01-20-2023 Outreach Lab KAREN Willson IVON COAL TRAMMER - LEAD OXIDE MILL TENDER [facility] Start: 04-11-2022 End: 04-16-2022 ambulatory KAREN DEL VALLE COAL TRAMMER - LEAD OXIDE MILL TENDER Facility:B Start: 04-11-2022 End: 04-15-2022 Outreach Lab BRYAN GARCIA COAL TRAMMER-LEAD OXIDE MILL TENDER [facility] Start: 09-30-2021 End: 09-30-2021 Patient encounter procedure KAREN MONTERROSOPKINS COAL TRAMMER - LEAD OXIDE MILL TENDER [facility] Start: 06-29-2021 End: 06-29-2021 Patient encounter procedure KAREN Anamika DEL VALLE COAL TRAMMER - LEAD OXIDE MILL TENDER [facility] Start: 06-14-2021 End: 06-14-2021 Patient encounter procedure KAREN Anamika DEL VALLE COAL TRAMMER - LEAD OXIDE MILL TENDER [facility] Start: 06-10-2021 End: 06-10-2021 Patient encounter procedure BRYAN GARCIA COAL TRAMMER-LEAD OXIDE MILL TENDER [facility] Start: 05-24-2021 End: 05-24-2021 Patient encounter procedure KAREN Anamika IVON COAL TRAMMER - LEAD OXIDE MILL TENDER [facility] Start: 04-28-2021 End: 05-02-2021 Outreach Lab JAROD GENTILE COAL TRAMMER-LEAD OXIDE MILL TENDER [facility] Immunizations Immunization Date Immunization Notes Care Provider Fa cili 04-01-2021 SARS-CoV-2 (COVID-19 ) Ad26 vaccine, recombinant KAREN MONTERROSOPKINS COAL TRAMMER - LEAD OXIDE MILL TENDER [facility] Payers Date Payer Category Payer Private Health Insurance [id number] 1970 Unknown [id number] [id number] [id number] 1971 Unknown [id number] 2.16.8 [id number] 1971 Unknown [id number] 2.16.8 [id number] 1971 Unknown [id number] 2.16.8 [id number] 1971 Unknown [id number] 2.16.8 [id number] 1971 Unknown [id number] 2.16.8 [id number] Social History Date Type Detail Facility Start: 02-03-2020 Never smoked t obacco (finding) [facility] Sex Assigned At Female [facility] Clinical Notes 05-24-2021 to 03-15-2023 LaboratoryLaboratoryLaboratoryRadiologyLaboratoryRadiologyLaboratoryRadiologyLab oratoryLaboratoryLaboratoryRadiologyLaboratoryRadiology Note Date & Type Note Facility 03-15-2023 Note . MICRO - Microbiology PROCEDURE: Urine Culture [*1] SOURCE: Urine, Clean Catch BODY SITE: COLLECTED DATE/TIME: 03/13/2023 17:29 EDT RECEIVED DATE/TIME: 03/13/2023 19:39 EDT START DATE/TIME: 03/13/2023 19:39 EDT FREE TEXT SOURCE: FINAL REPORTS Final Report [] Verified Date/Time/Personnel: 03/15/2023 07:47 EDT >100,000 cfu/ml Mixed growth consistent with normal urogenital shanita. PRELIMINARY REPORTS Preliminary Report [] Verified Date/Time/Personnel: 03/14/2023 09:13 EDT No growth to date Performing Locations *1: This test was performed at: [facility], [address] [place] [address], [facility] , [facility]ly [facility] ([place]) 03-01-2023 Note . MICRO - Microbiology PROCEDURE: Urine Culture [*1] SOURCE: Urine, Clean Catch BODY SITE: COLLECTED DATE/TIME: 02/27/2023 16:38 EDT RECEIVED DATE/TIME: 02/27/2023 21:50 EDT START DATE/TIME: 02/27/2023 21:51 EDT FREE TEXT SOURCE: FINAL REPORTS Final Report [] Verified Date/Time/Personnel: 03/01/2023 07:42 EDT >100,000 cfu/ml Multiple bacterial morphotypes present. Probable Contamination. Suggest recollection if clinically indicated. PRELIMINARY REPORTS Preliminary Report [] Verified Date/Time/Personnel: 02/28/2023 09:05 EDT Culture results pending. Performing Locations *1: This test was performed at: [facility], [address] [place] [address], [address] , Formerly [facility] ([place]) 01-16-2023 Evaluation + Plan note Future Scheduled [id number] Hemoglobin 01/16/23A1C Hemoglobin 12/08/22Lipid Profile 01/16/23Lipid Profile 12/08/22Albumin/Creatinine Ratio, Random Urine 01/16/23Microalbumin Level Urine 12/08/22Microalbumin Level Urine 04/07/22Vitamin D Level 01/16/23Vitamin D Level 12/08/22Complete Metabolic Panel 01/16/23Complete Metabolic Panel 12/08/22 [facility] 04-11-2022 HCoV 229E RNA [place]+non-probe Ql (Nph) Not Detected *NA* (04/11/22 11:35 AM) Auto Viro/Sero SS 06-14-2021 HCoV 229E RNA [place]+non-probe Ql (Nph) Not Detected *NA* (06/14/21 12:20 PM) Auto Viro/Sero SS 05-24-2021 HCoV 229E RNA [place]+non-probe Ql (Nph) Not Detected *NA* (05/24/21 2:34 PM) Auto Viro/Sero SS Evaluation + Plan note Future Appointments Appointment Date:08/09/2021 01:40:00 PM Scheduled Provider:KAREN DEL VALLE COAL TRAMMER - LEAD OXIDE MILL TENDER Location:[facility] Appointment Type:PC OV Follow Up Future Scheduled TestsUrine Culture 04/28/21Lipid Profile 08/09/21Complete Metabolic Panel 08/09/21 [facility] Evaluation + Plan note Future Appointments Appointment Date:05/27/2021 07:30:00 AM Scheduled Provider: Location:[facility] Appointment Type:US Bladder Appointment Date:08/09/2021 01:40:00 PM Scheduled Provider:KAREN DEL VALLE COAL TRAMMER - LEAD OXIDE MILL TENDER Location:[facility] Appointment Type:PC OV Follow Up Future Scheduled TestsUrine Culture 04/28/21Lipid Profile 08/09/21Complete Metabolic Panel 08/09/21US Bladder 05/27/21 [facility] Evaluation + Plan note Future Appointments Appointment Date:06/15/2021 07:30:00 AM Scheduled Provider: Location:[facility] Appointment Type:US Bladder Appointment Date:06/22/2021 03:00:00 PM Scheduled Provider:KAREN DEL VALLE COAL TRAMMER - LEAD OXIDE MILL TENDER Location:[facility] Appointment Type:PC OV Follow Up Appointment Date:08/09/2021 01:40:00 PM Scheduled Provider:KAREN DEL VALLE COAL TRAMMER - LEAD OXIDE MILL TENDER Location:[facility] Appointment Type:PC OV Follow Up Future Scheduled TestsBasic Metabolic Panel 06/08/21Urine Culture 04/28/21Urine Culture 06/08/21Complete Blood Count 06/08/21Lipid Profile 08/09/21Complete Metabolic Panel 08/09/21US Bladder 06/15/21 [facility] Evaluation + Plan note Future Appointments Appointment Date:06/15/2021 07:30:00 AM Scheduled Provider: Location:[facility] Appointment Type:US Bladder Appointment Date:06/22/2021 03:00:00 PM Scheduled Provider:KAREN DEL VALLE COAL TRAMMER - LEAD OXIDE MILL TENDER Location:[facility] Appointment Type:PC OV Follow Up Appointment Date:08/09/2021 01:40:00 PM Scheduled Provider:AKREN DEL VALLE COAL TRAMMER - LEAD OXIDE MILL TENDER Location:[facility] Appointment Type:PC OV Follow Up Future Scheduled TestsUrine Culture 04/28/21Urine Culture 06/08/21Lipid Profile 08/09/21Complete Metabolic Panel 08/09/21US Bladder 06/15/21 [facility] Evaluation + Plan note Future Appointments Appointment Date:07/02/2021 02:20:00 PM Scheduled Provider:KAREN DEL VALLE COAL TRAMMER - LEAD OXIDE MILL TENDER Location:[facility] Appointment Type:PC OV Follow Up Appointment Date:08/09/2021 01:40:00 PM Scheduled Provider:KAREN DEL VALLE COAL TRAMMER - LEAD OXIDE MILL TENDER Location:[facility] Appointment Type:PC OV Follow Up Future Scheduled TestsUrine Culture 04/28/21Urine Culture 06/08/21Lipid Profile 08/09/21Complete Metabolic Panel 08/09/21 [facility] Evaluation + Plan note Future Appointments Appointment Date:10/05/2021 10:20:00 AM Scheduled Provider:KAREN DEL VALLE COAL TRAMMER - LEAD OXIDE MILL TENDER Location:[facility] Appointment Type:PC OV Follow Up Future Scheduled TestsUrine Culture 04/28/21Urine Culture 06/08/21 [facility] Evaluation + Plan note Future Appointments Appointment Date:05/09/2022 03:40:00 PM Scheduled Provider:KAREN DEL VALLE COAL TRAMMER - LEAD OXIDE MILL TENDER Location:[facility] Appointment Type:PC OV Follow Up Future Scheduled TestsUrine Culture 04/28/21Urine Culture 06/08/21A1C Hemoglobin 04/07/22Lipid Profile 04/07/22Microalbumin Level Urine 04/07/22Vitamin D Level 04/07/22Complete Metabolic Panel 04/07/22MA Mammo Screening Bilateral w/ Jaciel 10/05/21 [facility] Evaluation + Plan note Future Appointments Appointment Date:01/25/2023 08:00:00 AM Scheduled Provider: Location:[facility] Appointment Type:GI OV Consult Future Scheduled [id number] Hemoglobin 01/16/23A1C Hemoglobin 12/08/22Lipid Profile 01/16/23Lipid Profile 12/08/22Albumin/Creatinine Ratio, Random Urine 01/16/23Microalbumin Level Urine 12/08/22Microalbumin Level Urine 04/07/22Vitamin D Level 01/16/23Vitamin D Level 12/08/22Complete Metabolic Panel 01/16/23Complete Metabolic Panel 12/08/22US Abdomen Complete 01/16/23 [facility] Hospital course Narrative No data available for this section [facility] Hospital Discharge instructions No data available for this section [facility] Progress note No data available for this section [facility] Summary Purpose Family History No Family History Records Found No data available for this section No data available for this section No data available for this section No data available for this section No Family History Records Found Advance Directives No Advanced Directives Records FoundNo Advanced Directives Records Found Additional Source Comments INFORMATION SOURCE (unrecogn ized section and content) DATE CREATED AUTHOR AUTHOR'S ORGANIZ ATION 03/19/2023 [facility] ([place]) Care Team (unrecognized sect ion and content) Personnel Name: KAREN DEL VALLE APRN, CNP Address: [address] [place] [address]- Care Team Personnel Name: KAREN DEL VALLE APRN, CNP Position: P4 Advanced Vp Informatics Member Role: Primary Care Physician Address: Address: [address] [place] [address]- Care Team Related Persons Name: ALEXI VALLE Address: Home [address] [place] [id number] [place] Care Team Personnel Name: KAREN DEL VALLE APRN, CNP Position: P4 Advanced Vp Informatics Member Role: Primary Care Physician Address: Address: [address] [place] [address]- Care Team Related Persons Name: ALEXI VALLE Address: Home [address] [place] [phone] [place] Care Team Personnel Name: KAREN DEL VALLE APRN - LEAD OXIDE MILL TENDER Position: P4 Advanced Vp Informatics Member Role: Primary Care Physician Address: Address: [address] [place] [address] Care Team Related Persons Name: ALEXI VALLE Address: Home [address] [place], [place] [id number] Care Team Personnel Name: KAREN DEL VALLE APRN - LEAD OXIDE MILL TENDER Position: P4 Advanced Vp Informatics Member Role: Primary Care Physician Address: Address: [address] [place] [address] Care Team Related Persons Name: ALEXI VALLE Address: Home [address] [place], [place] [id number] Care Team (unrecognized sect ion and content) Care Team Personnel Name: KAREN DEL VALLE APRN LEAD OXIDE MILL TENDER Position: P4 Advanced Practice Nurse Member Role: Primary Care Physician Address: Address: [address] [place] [address] Care Team Related Persons Name: ALEXI VALLE Address: Home [address] [place], [place] [id number] FOR RECORDS PERTAINING TO PATIENTS WHO ARE OR HAVE BEEN ENROLLED IN A CHEMICAL DEPENDENCY/SUBSTANCEABUSE PROGRAM, SOME INFORMATION MAY BE OMITTED. This clinical summary was aggregated from multiple sources. Caution should be exercised in using it in the provision of clinical care. This summary normalizes information from multiple sources, and as a consequence, information in this document may materially change the coding, format and clinical context of patient data. In addition, data may be omitted in some cases. CLINICAL DECISIONS SHOULD BE BASED ON THE PRIMARY CLINICAL RECORDS. [facility] [employer] provides no warranty or guarantee of the accuracy or completeness of information in this document.
--- NOTE | 2023-06-09 09:54 | H&P.OPEN ---
HPI - General HPI Narrative THADDEUS VALLE, is a 52 F who presents for screening colonoscopy. Patient has never had a colonoscopy in the past. She denies any abdominal pain or blood in her stool. She has no family history of colon cancer. She is not on any blood thinners. [facility] Medical History (Updated 06/07/23 @ 12:41 by Merline Gilliam) Abnormal mammogram Abnormal mammogram of left breast Anemia Chronic UTI Difficult intravenous access History of MRSA infection History of steroid therapy Hypertension Low iron Non-smoker Open wound Psoriatic arthritis Rheumatoid arthritis Wears contact lenses Home Medications diclofenac potassium 50 mg tablet 50 mg PO BID PRN Pain 05/06/22 [History Last Taken Unknown] folic acid 1 mg tablet 3 mg PO DAILY 05/06/22 [History Last Taken 02/27/23] ixekizumab 80 mg/mL subcutaneous auto-injector (Taltz Autoinjector) 80 mg subcut QMONTH 05/06/22 [History Last Taken 02/27/23] leucovorin calcium 15 mg tablet 15 mg PO QWEEK 05/06/22 [History Last Taken 02/27/23] methotrexate (PF) 7.5 mg/0.15 mL subcutaneous auto-injector 7.5 mg subcut QWEEK 05/06/22 [History Last Taken 02/27/23] prednisone 10 mg tablet 10 mg PO DAILY PRN Pain 05/06/22 [History Last Taken 02/27/23] ramipril 10 mg capsule 10 mg PO DAILY 05/06/22 [History Last Taken 02/27/23] cyclobenzaprine 10 mg tablet 10 mg PO DAILY PRN 02/08/23 [History Last Taken Unknown] ivermectin 1 % topical cream (Soolantra) 1 applic topical DAILY 02/08/23 [History Last Taken 04/17/23] TAEROLIMUS 1 dose topical DAILY PRN 04/17/23 [History Last Taken Unknown] acetaminophen 325 mg capsule 325 mg PO Q6H PRN pain 04/17/23 [History Last Taken Unknown] naproxen sodium 220 mg capsule (Aleve) 220 mg PO BID PRN pain 04/17/23 [History Last Taken Unknown] fluconazole 150 mg tablet 150 mg PO ONCE #1 TAB 04/18/23 [Rx Last Taken Unknown] doxycycline hyclate 100 mg capsule 100 mg PO DAILY 05/22/23 [History Last Taken Unknown] Allergy/AdvReac Type Severity Reaction Status Date / Time codeine Allergy Anaphylaxis Verified 06/09/23 09:30 Surgical History (Updated 06/07/23 @ 12:41 by Merline Gilliam) History of adenoidectomy History of bladder surgery History of cholecystectomy History of D&C History of myringotomy History of surgical procedure S/P D&C (status post dilation and curettage) Social History household members: spouse number of children: 2 current occupational status: employed current occupation: [employer]- Smoking Status: Never smoker alcohol intake: never substance use type: does not use seatbelt use: always do you feel safe at home: Yes additional social history: - [employer]- [employer] Past Medical/Surgical History Planned Operation Planned Operative Procedure/s: CSCOPE Previous Hospitalizations/Surgeries HX Hospitalizations: No Any Problems With Anesthesia: No You/Your Family Experience Fever (Hyperthermia) With Anes: No Cholinesterase deficiency: No Cardiovascular Hx Hypertension: Yes (WHEN BEING ON METHOTREXATE) Respiratory Hx Sleep Apnea: No CPAP: No Hx Respiratory Tract Infection/Cold (presently): No Do You Snore Loudly (louder than talking or can be heard): No Do You Often Feel Tired/ Fatigued/ Sleepy Dring Daytime?: No Has Anyone Observed You Stop Breathing During Sleep?: No Result (for STOP score): Negative Smoking Status: Never smoker Neurological Does patient have nerve stimulator: Yes (TENS, INSTRUCTED TO NOT WEAR DOS) Reproduction : No Miscellaneous Recent Exposure to Contagious Disease: No Allergies codeine Allergy (Verified 06/09/23 09:30) Anaphylaxis Discharge Is Pt Admitted From a Longterm, or a [facility]: No After D/C, Where Do you Plan to Go: Return Home Vital Signs Vital Signs Vital Signs: 06/09/23 09:31 06/09/23 09:31 Temperature 97.6 F L Temperature Source Temporal Pulse Rate 79 Respiratory Rate 18 Respiratory Pattern Normal Blood Pressure 158/97 H Blood Pressure Mean 117 Blood Pressure Source Monitor Blood Pressure Position Semi-Fowlers Blood Pressure Location Right Arm Pulse Ox 100 Oxygen Delivery Method Room Air Weight Weight: 241 lb Body Mass Index (BMI) 42.7 Physical Exam Const alert and oriented x3 HEENT normocephalic Eyes PERRL Resp normal respiratory effort and normal air movement Cardio regular rate and regular rhythm GI soft to palpation, non-tender and non-distended Extremity normal to inspection Assessment & Plan Assessment/Plan (1) Encounter for screening for malignant neoplasm of colon: PLAN: I explained endoscopy in detail to the patient. I explained the risks including but not limited to stroke or heart attack with anesthesia, perforation of the GI tract, bleeding, infection. I explained that any of these could necessitate further emergency surgery. The patient understands and all questions were answered sufficiently. The patient wishes to proceed with procedure. Trever Arreola MD Pager: [facility] [address] [place] [address], [address] [place] [address] Office: Surgery Risks - Colonoscopy Risks Include but are not Limited To: Risks include but are not limited to: Bleeding, perforation requiring further surgery, inability to complete colonoscopy requiring barium enema.
--- NOTE | 2023-06-09 10:21 | OP.COLON_ITS ---
Patient Name: Clarisse Mccray Procedure Date: 06/09/2023 9:54 AM Date of : 1970 Age: 52 Procedure: Colonoscopy Indications: Screening for colorectal malignant neoplasm Providers: Trever Arreola MD Referring MD: Trever Arreola MD Medicines: Monitored Anesthesia Care Patient Profile: This is a 52 year old female. Refer to note in patient chart for documentation of history and physical. Last Colonoscopy: none. The patient's first colonoscopy is today. Complications: No immediate complications. Procedure: Pre-Anesthesia Assessment: - Prior to the procedure, a History and Physical was performed, and patient medications and allergies were reviewed. The patient's tolerance of previous anesthesia was also reviewed. The risks and benefits of the procedure and the sedation options and risks were discussed with the patient. All questions were answered, and informed consent was obtained. Prior Anticoagulants: The patient has taken no anticoagulant or antiplatelet agents. After reviewing the risks and benefits, the patient was deemed in satisfactory condition to undergo the procedure. After I obtained informed consent, the scope was passed under direct vision. Throughout the procedure, the patient's blood pressure, pulse, and oxygen saturations were monitored continuously. The pediatric colonoscope was introduced through the anus and advanced to the cecum, identified by appendiceal orifice and ileocecal valve. The colonoscopy was performed without difficulty. The patient tolerated the procedure well. The quality of the bowel preparation was good. The ileocecal valve, appendiceal orifice, and rectum were photographed. Scope In: 10:07:04 AM Scope Withdrawal Time 0 hours 7 minutes 13 seconds Scope Out: 10:17:17 AM Total Procedure Duration Time 0 hours 10 minutes 13 seconds Findings: The entire examined colon appeared normal on direct and retroflexion views. Impression: - The entire examined colon is normal on direct and retroflexion views. - No specimens collected. Recommendation: - Discharge patient to home. - Resume previous diet. - Continue present medications. - Repeat colonoscopy in 10 years for screening purposes. Procedure Code(s): --- Professional --- 28682, Colonoscopy, flexible; diagnostic, including collection of specimen(s) by brushing or washing, when performed (separate procedure) Diagnosis Code(s): --- Professional --- Z12.11, Encounter for screening for malignant neoplasm of colon CPT copyright 2021 [employer]. All rights reserved. The codes documented in this report are preliminary and upon can capper review may be revised to meet current compliance requirements. Trever Arreola MD 06/09/2023 10:21:38 AM This report has been signed electronically. Number of Addenda: 0 Note Initiated On: 06/09/2023 9:54 AM
--- NOTE | 2023-06-09 10:21 | OP.CCLET_ITS ---
06/09/2023 Toni Moran Re : Colonoscopy procedure for Clarisse Mccray Dear Dean This procedure was performed on Friday, June 09, 2023. My impressions and recommendations are as follows: Impressions : - The entire examined colon is normal on direct and retroflexion views. - No specimens collected. Recommendations : - Discharge patient to home. - Resume previous diet. - Continue present medications. - Repeat colonoscopy in 10 years for screening purposes. My findings are described in the full procedure note, which is enclosed. If I can be of further assistance, please feel free to contact me at Doctor phone number(s): , Work: . Sincerely, Trever Arreola MD 06/09/2023 10:21:38 AM This report has been signed electronically.
== END 2023-06-09 11:01 | disposition home or self-care (01) ==
LOC: EN 09:16 → AC 09:16
PROVIDERS: PCP Nurse Practitioner Family; Referring Provider Nurse Practitioner Family; Visit Provider Surgery
PROC: 0DJD8ZZ Inspection of Lower Intestinal Tract, Via Natural or Artificial Opening Endoscopic (ICD-10-PCS; CPT 45378; principal; 2023-06-09 10:10)
DX: Z12.11 Encounter for screening for malignant neoplasm of colon (principal); I10 Essential (primary) hypertension; D64.9 Anemia, unspecified; Z79.52 Long term (current) use of systemic steroids; Z79.899 Other long term (current) drug therapy; Z90.49 Acquired absence of other specified parts of digestive tract
CPT/HCPCS: 45378; J7120; J2405

== ENCOUNTER → 2023-06-12 | Outpatient (CLI) | payer OTHER, SELFPAY ==
--- NOTE | 2023-06-12 | BRBX_PTH ---
PATHOLOGY RESULTS PATIENT: THADDEUS VALLE LOC: [facility] U#:[id number] AGE/SX: 52/F ROOM: RE06/12/[address]: Dr. Trever Arreola MD : 1970 BED: DIS: 06/12/2023 SPEC #: [id number] RECD: 06/12/23 10:25 STATUS: DESIREE MAXI #: [id number] MUNDO: 06/12/23 00:[address]: Trever Arreola DEPT: SURGICAL PATHOLOGY RECD BY: Bull Guadaluep ENTERED: 06/12/23 10:26 SP TYPE: BREAST BX OTHR DR: Toni Moran, FREDO-Chapito Tissues: Left breast, NOS Procedures: Surgery Specimen Level IV HEADER OPERATION: Left breast stereotactic biopsy PRE-OP DIAGNOSIS: Left breast architectural distortion TISSUE SUBMITTED: Left breast core tissue MICROSCOPIC DIAGNOSIS Left breast, core biopsy: Fibrocystic change. Focal intraductal hyperplasia without atypia. Banal microcalcification. AM:zuleyma 06/13/2023 MICROSCOPIC DESCRIPTION Slides are reviewed. GROSS DESCRIPTION Received in fixative is one container labeled with the patient's name and designated left breast. The specimen consists of multiple elongated fragments of abdi-yellow fibroadipose tissue that in aggregate measure 4.0 x 2.0 x 0.3 cm. The entire specimen is submitted in one cassette. / SJ:zuleyma 06/12/2023 TC:5 Ischemic Time: 1 minute Fixation Time: 10 hours CPT: 58430
--- NOTE | 2023-06-12 09:17 | PCM.OPRPT ---
Report of Operation Date of Procedure: 06/12/23 Pre-Operative Diagnosis: Abnormal mammogram of left breast Post-Operative Diagnosis: Same Surgery/Procedure Performed:: Left breast stereotactic guided core biopsy Type of Anesthesia: Local Estimated Blood Loss (mL): 2 Description of Procedure: Patient was brought to the stereotactic table and she was placed into the stereotactic table and compression views of the left breast were obtained. The area of architectural distortion was identified and localized. Stereotactic views were obtained and the area was targeted on the computer. Next the skin was prepped and draped in usual sterile fashion and a small area of skin was injected with local anesthetic. The breast was anesthetized as well. Next a small incision was made with a scalpel. The needle was placed in the breast and stereotactic views confirm that it was in good position. Next biopsies were obtained and then the titanium clip was placed into the breast. The needle was then removed. Repeat imaging shows that the clip was in the biopsy cavity and the biopsy cavity was in the architectural distortion. Steri-Strip and bandage were applied and patient was taken to mammogram for imaging. Patient tolerated the procedure well.
== END | disposition home or self-care (01) ==
LOC: BIRAD 08:16
PROVIDERS: PCP Nurse Practitioner Family; Referring Provider Surgery; Visit Provider Surgery
DX: N60.12 Diffuse cystic mastopathy of left breast (principal)
CPT/HCPCS: 19081; 88305; J7050; A4648

== ENCOUNTER → 2023-11-06 | Outpatient (CLI) | payer OTHER, SELFPAY ==
--- NOTE | 2023-11-06 08:36 | BI_ITS ---
MAMMOGRAPHY - UNILATERAL DIAGNOSTIC: LEFT BREAST REASON FOR EXAM: Female, 52 years old. Follow-up for prior left stereotactic breast biopsy. PERTINENT HISTORY: Non-contributory. TECHNIQUE: Digital unilateral breast carlos (3D mammographic acquisition) in the CC and MLO projections. 2-D mediolateral oblique (MLO) and craniocaudad (CC) views of both breasts were obtained. CAD: Full Field Digital Mammography with Computer Added Detection was performed. COMPARISON: Comparison is made with prior study dated May 24, 2023 and May 25, 2023. FINDINGS: Breast Composition: There are scattered areas of fibroglandular density. There are no dominant masses or suspicious calcifications. A tissue clip marker is seen in the deep upper lateral aspect of the left breast. The area of architectural distortion has decreased in size as compared to prior study. No other significant abnormalities are identified. BI/DIAG MAMM W/CAD, UNILAT IMPRESSION: Status post left stereotactic breast biopsy. One year follow-up mammogram recommended. (A) ASSESSMENT CATEGORY: BIRADS Category 2: Benign. A letter regarding these results will be sent to the patient by the facility within 30 days. Approximately 10% of breast cancers are not detected by mammography. A normal mammogram should not delay biopsy of a clinically suspicious abnormality. Electronically Signed: Jason Burnette MD at 10:14 EDT ,
== END | disposition home or self-care (01) ==
LOC: OPBI 08:36
PROVIDERS: PCP Nurse Practitioner Family; Referring Provider Surgery; Visit Provider Surgery
DX: R92.8 Other abnormal and inconclusive findings on diagnostic imaging of breast (principal)
CPT/HCPCS: 77061; 77065; G0279

== ENCOUNTER → 2023-11-15 | Outpatient (CLI) | payer OTHER, SELFPAY ==
[2023-11-17 22:07] LABS: QNTFERON TB Mitogen Value > 10.00 IU/mL (.); QNTFERON TB Nil Value 0 IU/mL (.); QNTFERON TB1+ Ag Value 0 IU/mL (.); QNTFERON TB2+ Ag Value 0 IU/mL (.); QNTIFERON TB Positive Criteria Negative (Negative)
== END | disposition home or self-care (01) ==
PROVIDERS: PCP Nurse Practitioner Family; Referring Provider Internal Medicine Rheumatology; Visit Provider Internal Medicine Rheumatology
DX: L40.59 Other psoriatic arthropathy (principal); Z79.899 Other long term (current) drug therapy
CPT/HCPCS: 36415; 86480

== ENCOUNTER → 2024-02-27 | Outpatient (CLI) | payer OTHER, SELFPAY ==
[2024-03-01 13:16] LABS: HPV Reflexed? NOT INDICATED
== END | disposition home or self-care (01) ==
LOC: LABSPEC 12:01
PROVIDERS: PCP Nurse Practitioner Family; Referring Provider Obstetrics & Gynecology; Visit Provider Obstetrics & Gynecology
DX: Z12.4 Encounter for screening for malignant neoplasm of cervix (principal); D84.9 Immunodeficiency, unspecified
CPT/HCPCS: 88175; G0145

== ENCOUNTER → 2024-10-23 | Outpatient (CLI) | payer OTHER, SELFPAY ==
--- NOTE | 2024-10-23 10:51 | RAD_ITS ---
EXAM: XR Left Knee Complete, 4 or More Views CLINICAL INDICATION: PSORIATIC ARTHROPATHY TECHNIQUE: Four or more views of the left knee. COMPARISON: No relevant prior studies available. FINDINGS: BONES/JOINTS: Unremarkable. No acute fracture. No dislocation. SOFT TISSUES: Unremarkable. RAD/Knee 4 or More Views IMPRESSION: No acute fracture. Reading [facility]
--- NOTE | 2024-10-23 10:51 | RAD_ITS ---
EXAM: XR Right Knee Complete, 4 or More Views CLINICAL INDICATION: PSORIATIC ARTHROPATHY TECHNIQUE: Four or more views of the right knee. COMPARISON: No relevant prior studies available. FINDINGS: BONES/JOINTS: Unremarkable. No acute fracture. No dislocation. SOFT TISSUES: Unremarkable. RAD/Knee 4 or More Views IMPRESSION: No acute fracture. Reading [facility]
== END | disposition home or self-care (01) ==
LOC: MTRAD 10:49
PROVIDERS: PCP Nurse Practitioner Family; Referring Provider Internal Medicine Rheumatology; Visit Provider Internal Medicine Rheumatology
DX: L40.59 Other psoriatic arthropathy (principal); Z79.899 Other long term (current) drug therapy
CPT/HCPCS: 73564

== ENCOUNTER → 2025-01-16 | Outpatient (CLI) | payer OTHER, SELFPAY ==
--- NOTE | 2025-01-16 13:45 | BI_ITS ---
EXAM: SCRN MAMM (CAD)W/JABARI BILAT DATE: 01/16/2025 CLINICAL HISTORY: F, Age 54 y/o , SCREEN FOR BREAST CANCER No family prior left stereotactic breast biopsy. TECHNIQUE: SCRN MAMM (CAD)W/JABARI BILAT COMPARISON: Prior exam(s) dated November 06, 2023.. FINDINGS: TISSUE DENSITY: There are scattered areas of fibroglandular density. Bilateral Breast Mammographic Findings: No significant masses, calcifications or other abnormalities are identified. Status post biopsy in the upper lateral aspect of the left breast with the postoperative architectural distortion. This is unchanged. No suspicious masses, areas of developing architectural distortion, or suspicious calcifications. There has been no significant interval change. BI/SCRN MAMM (CAD)W/JABARI BILAT IMPRESSION: Stable examination. OVERALL FINAL ASSESSMENT BI-RADS 2: BENIGN RECOMMENDATION: Routine annual follow-up in 1 Year A letter with findings and recommendations will be mailed to the patient. Reading Location: [facility]
== END | disposition home or self-care (01) ==
LOC: OPBI 13:41
PROVIDERS: PCP Nurse Practitioner Family; Referring Provider Obstetrics & Gynecology; Visit Provider Obstetrics & Gynecology
DX: Z12.31 Encounter for screening mammogram for malignant neoplasm of breast (principal)
CPT/HCPCS: 77063; 77067

== ENCOUNTER → 2025-03-03 | Outpatient (CLI) | payer OTHER, SELFPAY ==
[2025-03-06 16:09] LABS: HPV APTIMA, High Risk Negative (Negative)
== END | disposition home or self-care (01) ==
LOC: LABSPEC 09:43
PROVIDERS: Referring Provider Obstetrics & Gynecology; Visit Provider Obstetrics & Gynecology
DX: Z12.4 Encounter for screening for malignant neoplasm of cervix (principal); D84.9 Immunodeficiency, unspecified
CPT/HCPCS: 87624; 88175; G0145